=== PATIENT | female | born 1985 | race Caucasian/White ===

== ENCOUNTER 2020-03-05 10:45 | Inpatient (IN) | payer OTHER, SELFPAY ==
[~2020-03-05] VITALS: Ht 152.4 cm; Wt 65.3 kg
[2020-03-05 11:21] VITALS: BP_SYST 106
[2020-03-05] MEDS ORDERED: CEFAZOLIN 1 GM IVPB PREMIX 50 ML IV ONE ×2 (11:30→12:28)
[2020-03-05] MEDS ORDERED: LR 1,000 ML IV ONE (11:30)
[2020-03-05 11:45] LABS: BASOPHILS % (AUTO) 0.3 % (0.0-2.0); EOSINOPHILS # (AUTO) 0.1 K/uL (0.0-0.4); EOSINOPHILS % (AUTO) 1.3 % (0.0-4.0); HEMATOCRIT 37.9 % (36-48); HEMOGLOBIN 12.6 g/dL (12.0-16.0); LYMPHOCYTES # (AUTO) 1.6 K/uL (1.0-5.5); LYMPHOCYTES % (AUTO) 16.9 % (20.5-51.5); MEAN CORPUSCULAR HEMOGLOBIN 31 pg (27-31); MEAN CORPUSCULAR HGB CONC 33 % (32-36); MEAN CORPUSCULAR VOLUME 92 fL (79.0-98.0); MONOCYTES # (AUTO) 0.8 K/uL (0.0-1.0); MONOCYTES % (AUTO) 9.1 % (1.7-9.3); NEUTROPHILS # (AUTO) 6.7 K/uL (1.8-7.7); NEUTROPHILS % (AUTO) 72.4 % (40.0-70.0); PLATELET COUNT (AUTO) 199 K/uL (130-430); RED BLOOD CELL COUNT(AUTO) 4.11 MIL/uL (4.2-6.2); WHITE BLOOD COUNT (AUTO) 9.3 K/uL (4.8-10.8)
[2020-03-05 12:03] LABS: BILIRUBIN,URINE NEGATIVE (NEGATIVE); BLOOD, URINE NEGATIVE (NEGATIVE); CLARITY/URINE CLEAR (CLEAR); COLOR,URINE YELLOW (YELLOW); GLUCOSE,URINE NEGATIVE (NEGATIVE); KETONES,URINE NEGATIVE (NEGATIVE); LEUKOCYTE ESTERASE ,URINE NEGATIVE (NEGATIVE); NITRITE, URINE NEGATIVE (NEGATIVE); PROTEIN URINE NEGATIVE (NEGATIVE); UROBILINOGEN,URINE 0.2 (0.2-1.0)
[2020-03-05] MEDS ORDERED: NS IRRIG SOLN 1000 ML IR ONE (12:28)
[2020-03-05] MEDS ORDERED: METOCLOPRAMIDE HCL 10 MG/2 ML VIAL IVP ONE (12:28)
[2020-03-05] MEDS ORDERED: OXYTOCIN/0.9 % SODIUM CHLORIDE 20 UNITS/1,000 ML BAG IV ONE (12:28)
[2020-03-05] MEDS ORDERED: METHYLERGONOVINE MALEATE 0.2 MG/ML AMP IM ONE (12:28)
[2020-03-05] MEDS ORDERED: ePHEDrine sulfate 50 MG/ML VIAL IVP ONE (12:28)
[2020-03-05] MEDS ORDERED: LR 1,000 ML IV.SOLN IV ONE (12:28)
[2020-03-05] MEDS ORDERED: ONDANSETRON HCL 4 MG/2 ML VIAL IVP ONE (12:28)
[2020-03-05] MEDS ORDERED: PHENYLEPHRINE HCL 10 MG/ML VIAL (NEOSYNEPHRINE) IV ONE (12:28)
[2020-03-05] MEDS ORDERED: fentaNYL CITRATE/PF 100 MCG/2 ML AMP IVP ONE (12:28)
[2020-03-05] MEDS ORDERED: BUPIVACAINE /PF 0.75% 10 ML VIAL INJ ONE (12:28)
[2020-03-05] MEDS ORDERED: LIDOCAINE/EPI 1% 1:100000 20 ML VIAL INJ ONE (12:28)
[2020-03-05] MEDS ORDERED: MORPHINE SULFATE 10MG/10ML PF AMP EP ONE (12:28)
[2020-03-05] MEDS ORDERED: CEFAZOLIN 2 GM IVPB PREMIX 50 ML IV ONE (12:30)
[2020-03-05] MEDS ORDERED: METHYLERGONOVINE MALEATE 0.2 MG/ML AMP ONE (13:16)
[2020-03-05 13:22] VITALS: BP_SYST 122
[2020-03-05] MEDS ORDERED: ePHEDrine sulfate 50 MG/ML VIAL IVP PRN (14:00)
[2020-03-05] MEDS ORDERED: MEPERIDINE HCL/PF 25 MG/ML DISP.SYRIN IVP PRN ×2 (14:00)
[2020-03-05] MEDS ORDERED: ONDANSETRON HCL 4 MG/2 ML VIAL IVP PRN ×2 (14:00)
[2020-03-05] MEDS ORDERED: KETOROLAC TROMETHAMINE 30 MG VIAL IM PRN (14:00)
[2020-03-05] MEDS ORDERED: NALOXONE HCL 0.4 MG/ML AMP (NARCAN) IVP PRN ×2 (14:00)
[2020-03-05] MEDS ORDERED: MORPHINE SULFATE 10MG/10ML PF AMP SP SCH (14:00)
[2020-03-05] MEDS ORDERED: HYDROmorphone 1 MG INJ. 1 MG/ML AMPUL IVP PRN (14:00)
[2020-03-05] MEDS ORDERED: KETOROLAC TROMETHAMINE 30 MG VIAL IVP PRN (14:00)
[2020-03-05] MEDS ORDERED: DIPHENHYDRAMINE INJ 50 MG/ML VIAL IVP PRN (14:00)
[2020-03-05] MEDS ORDERED: OXYTOCIN/0.9 % SODIUM CHLORIDE 1,000 ML IV ONE ×2 (14:11→15:30)
[2020-03-05] MEDS ORDERED: OXYTOCIN/0.9 % SODIUM CHLORIDE 1,000 ML IV SCH (14:22)
[2020-03-05] MEDS ORDERED: LANOLIN 7 GM OINT. TP PRN (15:30)
[2020-03-05] MEDS: KETOROLAC TROMETHAMINE 30 MG VIAL IVP SCH ×2 (18:36→23:52)
[2020-03-06] MEDS: KETOROLAC TROMETHAMINE 30 MG VIAL IVP SCH (06:02)
[2020-03-06] MEDS ORDERED: HYDROcodone/ACETAMIN 5-325 MG TAB (NORCO/ VICODIN) PO PRN (07:00)
[2020-03-06 07:23] LABS: BASOPHILS % (AUTO) 0.3 % (0.0-2.0); EOSINOPHILS # (AUTO) 0.1 K/uL (0.0-0.4); EOSINOPHILS % (AUTO) 0.9 % (0.0-4.0); HEMATOCRIT 32.7 % (36-48); HEMOGLOBIN 10.7 g/dL (12.0-16.0); LYMPHOCYTES # (AUTO) 1.8 K/uL (1.0-5.5); LYMPHOCYTES % (AUTO) 14.1 % (20.5-51.5); MEAN CORPUSCULAR HEMOGLOBIN 31 pg (27-31); MEAN CORPUSCULAR HGB CONC 33 % (32-36); MEAN CORPUSCULAR VOLUME 94 fL (79.0-98.0); MONOCYTES # (AUTO) 1.3 K/uL (0.0-1.0); MONOCYTES % (AUTO) 9.8 % (1.7-9.3); NEUTROPHILS # (AUTO) 9.6 K/uL (1.8-7.7); NEUTROPHILS % (AUTO) 74.9 % (40.0-70.0); PLATELET COUNT (AUTO) 185 K/uL (130-430); RED BLOOD CELL COUNT(AUTO) 3.49 MIL/uL (4.2-6.2); RED CELL DISTRIBUTION WIDTH 14.2 % (9.0-15.0); WHITE BLOOD COUNT (AUTO) 12.9 K/uL (4.8-10.8)
[2020-03-06] MEDS: OXYCODONE/ACETAMINOPHEN 5-325 TABLET PO PRN ×5 (08:18→23:41)
[2020-03-06] MEDS: DOCUSATE SODIUM 100 MG CAPSULE PO PRN ×2 (08:18→19:28)
[2020-03-06] MEDS: SIMETHICONE 80 MG TAB.CHEW PO PRN ×3 (08:18→19:28)
[2020-03-06] MEDS: IBUPROFEN 600 MG TABLET PO SCH ×3 (12:19→23:41)
--- NOTE | 2020-03-06 15:14 | NUR ---
IV FLUIDS LATE ENTRY DUE TO PT CARE: 1120AM IV FLUIDS OF LR AT 125 ML PER HOUR DISCONTINUED
[2020-03-07] MEDS: OXYCODONE/ACETAMINOPHEN 5-325 TABLET PO PRN ×4 (03:16→21:15)
[2020-03-07] MEDS: SIMETHICONE 80 MG TAB.CHEW PO PRN ×2 (06:34→16:47)
[2020-03-07] MEDS: IBUPROFEN 600 MG TABLET PO SCH ×3 (06:34→17:32)
[2020-03-07] MEDS: DOCUSATE SODIUM 100 MG CAPSULE PO PRN (21:10)
[2020-03-08] MEDS: IBUPROFEN 600 MG TABLET PO SCH ×2 (00:06→06:25)
[2020-03-08] MEDS: OXYCODONE/ACETAMINOPHEN 5-325 TABLET PO PRN ×3 (00:13→08:54)
[2020-03-08] MEDS: SIMETHICONE 80 MG TAB.CHEW PO PRN ×3 (01:02→08:54)
[2020-03-08] MEDS: DOCUSATE SODIUM 100 MG CAPSULE PO PRN (08:54)
[2020-03-08 18:09] LABS: FTA-Ab (T PALLIDUM) Non Reactive (Non Reactive)
== END 2020-03-08 09:50 | disposition home or self-care (01) | DRG 540 ==
LOC: SPU 10:45
PROVIDERS: ADMIT Obstetrics & Gynecology; ATTEND Obstetrics & Gynecology
PROC: 10D00Z1 Extraction of Products of Conception, Low, Open Approach (ICD-10-PCS; principal; 2020-03-05 12:30)
DX: O34.211 Maternal care for low transverse scar from previous cesarean delivery (principal); O69.81X0 Labor and delivery complicated by cord around neck, without compression, not applicable or unspecified; Z20.828 Contact with and (suspected) exposure to other viral communicable diseases; Z37.0 Single live birth; Z3A.39 39 weeks gestation of pregnancy
CPT/HCPCS: 36415; 81003; 85025; 86592; 86780; 86886; 86900; 86901; J0690; J1885; J2210; J2274; J2370; J2405; J2590; J2765; J3010; J3490; J7120